=== PATIENT | male | born 1980 | race Two or more races ===

== ENCOUNTER → 2018-01-04 | Emergency (ER) | payer OTHER ==
[~2018-01-04] VITALS: Ht 170.2 cm; Wt 59.9 kg
[~2018-01-04] MED LIST: CEFTRIAXONE 1GM BAG (ER ONLY) 1 GM/50 ML PIGGYBACK IV ONE; CEFTRIAXONE 1GM BAG (ER ONLY) 50 ML IV ONE; FAMOTIDINE/PF INJ 20 MG/2 ML VIAL IV ONE; IV NS 0.9% 1,000 ML BAG IV ONE; KETOROLAC TROMETHAMINE INJ 30 MG/ML VIAL IV ONE; KETOROLAC TROMETHAMINE INJ 30 MG/ML VIAL ONE; ONDANSETRON HCL/PF 4 MG/2 ML VIAL IVP ONE; ONDANSETRON HCL/PF 4 MG/2 ML VIAL ONE
--- NOTE | 2018-01-04 19:31 | NUR ---
PT BIB FAMILY FROM HOME, PT C/O NAUSEA AND VOMITING X 2 DAYS. PT STATES HE WAS SEEN AT THE URGENT CARE YESTERDAY AND WAS PRESCRIBED ANTI-NAUSEA MEDICATION. PT STATES "I HAD IN N OUT TODAY AND STARTED THROWING UP AGAIN AFTER NOT HAVING ANY VOMITTING EPISODES FOR 12 HOURS." PT STATES HE HAD 10 EPISODES OF VOMIT X TODAY. PT AAOX4. RESP EVEN AND NONE LABORED. NO S/S OF ACUTE DISTRESS NOTED. PT FAMILY MEMBER BEDSIDE. URINE SPECIMEN COLLECTED. AWAITING MD FOR EVAL.
--- NOTE | 2018-01-04 19:44 | NUR ---
BEDSIDE FOR EVAL.
[2018-01-04 19:59] LABS: APPEARANCE,URINE Cloudy (CLEAR); BILIRUBIN,URINE SMALL (NEGATIVE); BLOOD, URINE Negative Ery/uL (NEGATIVE); COLOR,URINE Dark (YELLOW); KETONES,URINE 15 (NEGATIVE); LEUKOCYTE ESTERASE ,URINE Negative (NEGATIVE); NITRITE, URINE Negative (NEGATIVE); PH,URINE 8.5 (5.0-8.0); PROTEIN,URINE 100 mg/dl (NEGATIVE); UGLUCOSE Negative (NEGATIVE)
[2018-01-04 20:04] LABS: BASOPHILS # (AUTO) 0.2 /CMM (0.0-0.2); BASOPHILS % (AUTO) 1.4 % (0.0-2.0); EOSINOPHILS # (AUTO) 0.1 /CMM (0.0-0.7); EOSINOPHILS % (AUTO) 0.5 % (0.0-6.0); HEMATOCRIT 47 % (39-51); HEMOGLOBIN 16.3 g/dL (13.5-17.5); LYMPHOCYTES # (AUTO) 2.3 /CMM (0.8-4.8); LYMPHOCYTES % (AUTO) 16.9 % (20.0-44.0); MEAN CORPUSCULAR HEMOGLOBIN 32 PG (26.0-33.0); MEAN CORPUSCULAR HGB CONC 35 g/dl (31.0-36.0); MEAN CORPUSCULAR VOLUME 91 fL (80-96); MONOCYTES % (AUTO) 7.3 % (2.0-12.0); NEUTROPHILS # (AUTO) 10.3 /CMM (1.8-8.9); NEUTROPHILS % (AUTO) 73.9 % (43.0-81.0); PLATELET COUNT (AUTO) 356 /CMM (150-450); RDW COEFFICIENT OF VARIATION 12.6 (11.5-15.0); RED BLOOD CELL COUNT(AUTO) 5.12 MIL/uL (4.5-6.0); WHITE BLOOD COUNT (AUTO) 13.9 K/uL (4.3-11.0)
--- NOTE | 2018-01-04 20:13 | NUR ---
PT MEDICATED AND RESTING IN BED COMFORTABLY. PT PLACED ON MONITOR AND POX.
[2018-01-04 20:14] LABS: CALCIUM, SERUM 9.3 mg/dL (8.5-10.1); CREATININE 1.1 mg/dL (0.6-1.3); POTASSIUM 3.4 mmol/L (3.5-5.1)
--- NOTE | 2018-01-04 20:14 | NUR ---
RADIOLOGY BEDSIDE FOR CHEST -XRAY
--- NOTE | 2018-01-04 20:16 | NUR ---
PT TO CT.
[2018-01-04 20:18] LABS: INR 0.89 (0.85-1.15)
[2018-01-04 20:20] LABS: ALBUMIN 4.3 g/dL (3.4-5.0); BILIRUBIN,DIRECT 0.1 mg/dL (0.0-0.2); BILIRUBIN,TOTAL 0.5 mg/dL (0.2-1.0); TOTAL PROTEIN, SERUM 8.7 g/dL (6.4-8.2)
--- NOTE | 2018-01-04 20:29 | NUR ---
PT BACK FROM CT
[2018-01-04 21:05] LABS: BACTERIA,URINE Rare /HPF (None Seen); RBC,URINE 0-2 /HPF (0-2); SQUAMOUS EPITHELIAL CELL,UR Few /HPF (None Seen); WBC,URINE 0-2 /HPF (0-3)
--- NOTE | 2018-01-04 21:36 | NUR ---
Patient discharged to home in stable condition. Written and verbal after care instructions and RX given. Patient verbalizes understanding of instruction.IV removed. Catheter intact and site benign. Pressure and 4x4 applied to site. No bleeding noted. VSS on discharge. pt ambulated with steady gait out of ER accompanied by family member.
[2018-01-04 21:37] VITALS: BP 119/72
== END | disposition home or self-care (01) ==
LOC: ER 19:00
DX: J18.9 Pneumonia, unspecified organism (principal); R11.2 Nausea with vomiting, unspecified; F32.9 Major depressive disorder, single episode, unspecified; Z88.1 Allergy status to other antibiotic agents
CPT/HCPCS: 36415; 71045-TC; 80048-TC; 80076-TC; 81000-TC; 83690-TC; 85025-TC; 85730-TC; A4606; J0696; J1885; J2405; J3490; J7030; Z7610